=== PATIENT | male | born 1960 | race Caucasian/White ===

== ENCOUNTER 2018-12-23 23:00 | Inpatient (IN) | payer OTHER ==
[~2018-12-23] VITALS: Ht 175.3 cm; Wt 81.6 kg
[2018-12-23 23:01] VITALS: BP 102/64
--- NOTE | 2018-12-23 23:05 | NUR ---
TO LOBBY A/W BED, AMBULATORY
--- NOTE | 2018-12-23 23:28 | NUR ---
PT TAKEN TO BED 4
--- NOTE | 2018-12-23 23:50 | NUR ---
PT C/O RECTAL BLEEDING AND HEMMORHOIDS WORSENING OVER 1 WEEK, DIZZINESS AND PALLOR. STATES HE'S FILLING TOILET WITH BRIGHT BED BLOOD. DENIES PAIN, SOB, SOB. NO OTHER COMPLAINTS. PLACED ON FULL MONITOR, BED IN LOW POSITION/LOCKED, NO REQUESTS AT THIS TIME.
--- NOTE | 2018-12-23 23:54 | NUR ---
RAD AT BEDSIDE
[2018-12-24] MEDS ORDERED: NACL 0.9% 1,000 ML IV ONE (00:10)
[2018-12-24 00:53] LABS: APPEARANCE,URINE CLEAR (CLEAR); BILIRUBIN,URINE NEGATIVE (NEGATIVE); BLOOD, URINE NEGATIVE (NEGATIVE); COLOR,URINE YELLOW (YELLOW); LEUKOCYTE ESTERASE ,URINE NEGATIVE (NEGATIVE); NITRITE, URINE NEGATIVE (NEGATIVE); PH,URINE 6.5 (5.0-9.0); UGLUCOSE NEGATIVE (NEGATIVE)
[2018-12-24 00:57] LABS: CARBON DIOXIDE 26.2 mmol/L (21-32); CREATININE 1.1 mg/dL (0.7-1.3); POTASSIUM 4.2 mmol/L (3.5-5.1)
[2018-12-24 00:59] LABS: BARBITURATE, URINE NEG. ng/ml (NEG <=200); BENZODIAZEPINE, URINE NEG. ng/mL (NEG <=200); CANNABINOID, URINE NEG. ng/mL (NEG <=50); COCAINE, URINE NEG. ng/mL (NEG <=300); OPIATE, URINE NEG. ng/mL (NEG <=2000); PHENCYCLIDINE SCREEN,URINE NEG. ng/mL (NEG <=25)
[2018-12-24 00:59] LABS: BASOPHILS % (AUTO) 0.3 % (0.0-2.0); EOSINOPHILS # (AUTO) 0.3 K/uL (0-0.4); EOSINOPHILS % (AUTO) 4.3 % (0.0-4.0); HEMATOCRIT 22.3 % (36-52); LYMPHOCYTES # (AUTO) 2.3 K/uL (2.0-11.5); LYMPHOCYTES % (AUTO) 32.3 % (20.5-51.1); MEAN CORPUSCULAR HEMOGLOBIN 28 pg (27-31); MEAN CORPUSCULAR HGB CONC 33 g/dL (33-37); MEAN CORPUSCULAR VOLUME 83.9 fL (80-94); MONOCYTES # (AUTO) 0.8 K/uL (0.8-1.0); MONOCYTES % (AUTO) 10.8 % (1.7-9.3); NEUTROPHILS # (AUTO) 3.7 K/uL (1.8-7.7); NEUTROPHILS % (AUTO) 52.3 % (42.2-75.2); PLATELET COUNT (AUTO) 344 K/uL (140-450); RED BLOOD CELL COUNT(AUTO) 2.66 MIL/uL (4.20-6.10); RED CELL DISTRIBUTION WIDTH 15.9 % (11.6-13.7); WHITE BLOOD COUNT (AUTO) 7.1 K/uL (4.8-10.8)
[2018-12-24 01:03] LABS: ALBUMIN 3.3 g/dL (3.4-5.0); TOTAL BILIRUBIN 0.3 mg/dL (0.0-1.0)
[2018-12-24 01:05] LABS: HEMOGLOBIN 7.4 g/dL (12.0-18.0)
--- NOTE | 2018-12-24 01:15 | NUR ---
Pt awake in bed. VSS at this time. Snack provided for pt. Bedrails x1 up. HOB elevated for comfort. Will continue to monitor.
[2018-12-24 01:34] LABS: PROTHROMBIN TIME 10.7 secs (10.8-13.4)
[2018-12-24] MEDS ORDERED: ACETAMINOPHEN 325 MG TAB PO PRN (01:40)
[2018-12-24] MEDS ORDERED: POTASSIUM CHLORIDE 40 MEQ, LIDOCAINE 1% 25 MG in NACL 0.9% 250 ML IV PRN (01:40)
[2018-12-24] MEDS ORDERED: guaiFENesin DM 200/20 MG-10 ML 10 ML UDC PO PRN (01:40)
[2018-12-24] MEDS ORDERED: POTASSIUM CHLORIDE 10 MEQ TABER PO PRN (01:40)
[2018-12-24] MEDS ORDERED: ONDANSETRON 4 MG/2 ML VIAL IVP PRN (01:40)
[2018-12-24] MEDS ORDERED: MAGNESIUM OXIDE 400 MG TAB PO PRN (01:40)
[2018-12-24] MEDS ORDERED: diphenhydrAMINE 50 MG/ML VIAL IVP PRN (01:40)
[2018-12-24] MEDS ORDERED: ALBUTEROL 0.083% 2.5 MG/3 ML NEBU INH PRN (01:40)
[2018-12-24] MEDS ORDERED: MAG SULF 2000 MG/WATER PREMIX 50 ML IV PRN (01:40)
[2018-12-24] MEDS ORDERED: DOCUSATE SODIUM 250 MG GELCAP PO PRN (01:40)
[2018-12-24] MEDS ORDERED: ZOLPIDEM 5 MG TAB PO PRN (01:40)
[2018-12-24] MEDS ORDERED: ASPI-1718 PO (02:52)
[2018-12-24] MEDS ORDERED: CARV25TA PO (03:12)
[2018-12-24] MEDS ORDERED: LIP80 PO (03:12)
[2018-12-24] MEDS ORDERED: AMLO10TA PO (03:12)
[2018-12-24] MEDS ORDERED: RANO1000 PO (03:12)
[2018-12-24] MEDS ORDERED: ACET-5636 PO (03:12)
[2018-12-24] MEDS ORDERED: GABA100C PO (03:12)
[2018-12-24] MEDS ORDERED: CYCL10TA33 PO (03:12)
--- NOTE | 2018-12-24 03:20 | NUR ---
Patient will be admitted to care of Dr. Dowell. Admited to [facility]. Will go to room 120A Belongings list completed. VSS at time of transport. Report given to VAHID Harrell. Transfer of care at this time.
--- NOTE | 2018-12-24 03:30 | NUR ---
ADMITTED THIS 58 YEAR OLD MALE FORM ER PER SHALINI WITH CC OF DIZZINESS AND BLOODY STOOL, AMBULATED TO BED USING CANE, ASSESSMENT DONE, VITAL SIGNS STABLE, COMPLAINING OF LOWER BACK PAIN DUE TO HX OF SEVERE LUMBAR STENOSIS, WILL MEDICATE PRN, ORIENTED TO ROOM AND CALL LIGHT, SAFETY MEASURES IN PLACE, CALL LIGHT WITHIN REACH.
[2018-12-24] MEDS ORDERED: LOSARTAN (03:48)
--- NOTE | 2018-12-24 03:50 | NUR ---
PT AMBULATED TO BR, BM WITH BLOODY STOOL NOTED, HX OF HEMORRHOIDS, TO RECEIVE 2 UNIT PRBC TODAY ORDERED, CONSENT SIGNED, MONITORED CLOSELY
[2018-12-24] MEDS ORDERED: [UNRECOGNIZED DRUG - OTHER] PO (03:54)
[2018-12-24 04:00] VITALS: BP 133/77
--- NOTE | 2018-12-24 04:25 | NUR ---
1ST UNIT PRBC STARTED, MONITORED FOR ANY REACTION, VITAL SIGNS PER PROTOCOL, ALL NEEDS ATTENDED.
[2018-12-24] MEDS: HYDROcodone/APAP 5/325 MG 1 TAB TAB PO PRN ×3 (05:07→23:08)
--- NOTE | 2018-12-24 05:55 | NUR ---
PT SLEEPING, EASILY AROUSABLE, VERBALIZED PAIN RELIEF, 1ST UNIT PRBC INFUSING WELL, NO SIGNS OF REACTION NOTED SO FAR, CONTINUE TO MONITOR CLOSELY.
--- NOTE | 2018-12-24 07:09 | NUR ---
RECEIVED PT AWAKE, NO DISTRESS NOTED, REPORT GIVEN TO VAHID MAYNARD FOR CONTINUITY OF CARE.
--- NOTE | 2018-12-24 07:10 | NUR ---
RECEIVED BEDSIDE REPORT FROM VAHID ALEJO. PT STABLE, AWAKE, ALERT AND ORIENTED X4. NO SIGNS OF DISTRESS NOTED. DENIES PAIN OR SOB. NO REDNESS, SWELLING, OR INFLAMMATION NOTED ON IV SITE. BLOOD TRANSFUSION RUNNING. BED IN LOWEST POSITION, BED ALARM ON. CALL MACHADO WITHIN REACH. SAFETY MEASURES IN PLACE. PLAN OF CARE REVIEWED.
[2018-12-24] MEDS ORDERED: ALUMINUM HYD/MAG/SIMETHICONE 30 ML UDC PO PRN (07:40)
[2018-12-24] MEDS ORDERED: CYCLOBENZAPRINE 10 MG TAB PO PRN (07:40)
[2018-12-24 08:00] VITALS: BP 105/63
--- NOTE | 2018-12-24 08:28 | NUR ---
PATIENT HAS BEEN SCREENED AND CATEGORIZED MODERATE NUTRITION RISK. PATIENT WILL BE SEEN WITHIN 3-5 DAYS OF ADMISSION. 12/26/18[address]
--- NOTE | 2018-12-24 09:30 | NUR ---
ICE PACK PROVIDED TO PT FOR BACK PAIN. PT TOLERATED WELL.
[2018-12-24 10:16] LABS: BASOPHILS % (AUTO) 0.5 % (0.0-2.0); EOSINOPHILS # (AUTO) 0.3 K/uL (0-0.4); EOSINOPHILS % (AUTO) 5.2 % (0.0-4.0); HEMATOCRIT 24.2 % (36-52); HEMOGLOBIN 7.9 g/dL (12.0-18.0); LYMPHOCYTES % (AUTO) 35.1 % (20.5-51.1); MEAN CORPUSCULAR HEMOGLOBIN 28 pg (27-31); MEAN CORPUSCULAR HGB CONC 33 g/dL (33-37); MEAN CORPUSCULAR VOLUME 85.9 fL (80-94); MONOCYTES # (AUTO) 0.8 K/uL (0.8-1.0); NEUTROPHILS # (AUTO) 2.5 K/uL (1.8-7.7); NEUTROPHILS % (AUTO) 45.2 % (42.2-75.2); PLATELET COUNT (AUTO) 282 K/uL (140-450); RED BLOOD CELL COUNT(AUTO) 2.82 MIL/uL (4.20-6.10); RED CELL DISTRIBUTION WIDTH 16.1 % (11.6-13.7); WHITE BLOOD COUNT (AUTO) 5.6 K/uL (4.8-10.8)
--- NOTE | 2018-12-24 11:09 | NUR ---
CALLED OFFICE OF DR DAVIS [phone] SPOKE TO SUNIL, MADE A FOLLOW-UP APPOINTMENT ON 01/02/19 @ 1145 AM, [id number] [place], [phone]. I MADE COPY OF APPOINTMENT SCHEDULE AND GIVEN IT TO PATIENT. PRIMARY NURSE ALEYDA GARZA NOTIFIED.
--- NOTE | 2018-12-24 11:10 | NUR ---
SPOKE WITH SKETCH ARTIST ALEYDA CABRERA REGARDING PT'S PLAN OF CARE.
--- NOTE | 2018-12-24 11:20 | NUR ---
BLOOD TRANSFUSION STARTED, VERIFIED WITH VAHID HARLEY. PT TOLERATED WELL. VITAL SIGNS TAKEN, PT STABLE. WILL CONTINUE TO MONITOR.
--- NOTE | 2018-12-24 11:35 | NUR ---
VITAL SIGNS TAKEN, PT STABLE. NO BLOOD TRANSFUSION REACTION NOTED FROM PT. PT DENIES ITCHINESS, CHEST PAIN, DIZZINESS, OR N/V. WILL CONTINUE TO MONITOR.
--- NOTE | 2018-12-24 11:45 | NUR ---
ADMINISTERED PRN NORCO AND FLEXERIL FOR 5/10 BACK PAIN AND MAALOX FOR UPSET STOMACH. PT TOLERATED WELL. NO OTHER NEEDS AT THIS TIME.
[2018-12-24 12:00] VITALS: BP 117/73
--- NOTE | 2018-12-24 12:04 | NUR ---
DR CALI AT THE BEDSIDE, RECEIVED VERBAL ORDER FROM DR CALI FOR CLEAR LIQUID DIET.
[2018-12-24] MEDS ORDERED: NON-FORMULARY ITEM (Oxycodone HCl/Acetaminophen (Percocet 10-325 mg Tablet) 1 TAB) PO SCH (13:00)
--- NOTE | 2018-12-24 13:13 | NUR ---
PAGED DR ARRIAZA.
--- NOTE | 2018-12-24 13:18 | NUR ---
SPOKE WITH DR ARRIAZA, RECEIVED TELEPHONE ORDER FOR GI CONSULT - DR. LEMUS.
--- NOTE | 2018-12-24 14:15 | NUR ---
PT STABLE, SLEEPING, BUT EASILY AROUSABLE. NO OTHER NEEDS AT THIS TIME
--- NOTE | 2018-12-24 15:05 | NUR ---
BLOOD TRANSFUSION DONE, NO REACTION NOTED. VITAL SIGNS TAKEN, PT STABLE. NO OTHER NEEDS AT THIS TIME.
[2018-12-24 16:00] VITALS: BP 132/80
[2018-12-24] MEDS ORDERED: oxyCODONE/APAP 5/325 MG 1 TAB TAB PO SCH (17:00)
[2018-12-24] MEDS: oxyCODONE/APAP 5/325 MG 1 TAB TAB PO SCH (17:35)
--- NOTE | 2018-12-24 17:41 | NUR ---
ADMINISTERED SCHEDULED MEDICATIONS, PT TOLERATED WELL. NO OTHER NEEDS AT THIS TIME.
--- NOTE | 2018-12-24 19:05 | NUR ---
ENDORSED PT TO RN HERMELINDA FOR CONTINUITY OF CARE. PT STABLE.
[2018-12-24] MEDS ORDERED: BOWEL EVACUANT DRINK 4,000 ML PDS PO SCH (19:15)
[2018-12-24] MEDS ORDERED: SENNA 8.6 MG TAB PO SCH (19:15)
--- NOTE | 2018-12-24 19:35 | NUR ---
RECEIVED BEDSIDE REPORT FROM DAY SHIFT NURSE. PATIENT AWAKE, ALERT, AND COOPERATIVE. RESPIRATION EVEN UNLABORED ON ROOM AIR. NO DISTRESS NOTED. SKIN IS WARM AND DRY. IV PATENT AND INTACT. PATIENT AMBULATES WITH ASSISTIVE DEVICE. PLAN OF CARE REVIEWED AND DISCUSSED. ALL SAFETY MEASURES IN PLACE. BED IN LOW POSITION. CALL LIGHT WITHIN REACH AND VERBALIZE ITS USE. WILL CONTINUE TO MONITOR.
[2018-12-24 20:00] VITALS: BP 124/90
[2018-12-24] MEDS: CARVEDILOL 12.5 MG TAB PO SCH (20:53)
[2018-12-24] MEDS: GABAPENTIN 100 MG CAP PO SCH (20:53)
--- NOTE | 2018-12-24 21:00 | NUR ---
ALL SCHEDULED MEDS WERE GIVEN PER ORDER. NO ASE NOTED. WILL CONTINUE TO MONITOR.
--- NOTE | 2018-12-24 22:00 | NUR ---
PATIENT HAD 2 EPISODE OF BOWEL MOVEMENT. INSTRUCT PATIENT TO CONTINUALLY KEEP DRINKING GOLYTELY PER ORDER. WILL CONTINUE TO MONITOR
[2018-12-24] MEDS ORDERED: MAGNESIUM CITRATE 300 ML BTL PO SCH (23:00)
--- NOTE | 2018-12-24 23:00 | NUR ---
PATIENT COMPLAINED OF LOWER BACK PAIN 04/05. PRN PAIN MED ADMINISTERED PER ORDER. WILL CONTINUE TO MONITOR
[2018-12-25] VITALS: BP 157/90
--- NOTE | 2018-12-25 | NUR ---
VITALS WERE TAKEN. PATIENT CONDITION STABLE. NO DISTRESS NOTED WILL CONTINUE TO MONITOR
--- NOTE | 2018-12-25 02:00 | NUR ---
CHECKED PATIENT. PATIENT SLEEPING RESPIRATION EVEN UNLABORED ON ROOM AIR. NO DISTRESS NOTED. WILL CONTINUE TO MONITOR.
[2018-12-25 04:00] VITALS: BP 116/76
--- NOTE | 2018-12-25 04:00 | NUR ---
VITALS WERE TAKEN. PATIENT CONDITION STABLE. PATIENT COMPLAINED OF BACK PAIN 8/. PRN PAIN MED ADMINISTERED PER ORDER. WILL CONTINUE TO MONITOR
[2018-12-25] MEDS: HYDROcodone/APAP 5/325 MG 1 TAB TAB PO PRN (04:06)
[2018-12-25 06:33] LABS: BASOPHILS % (AUTO) 0.3 % (0.0-2.0); EOSINOPHILS # (AUTO) 0.3 K/uL (0-0.4); EOSINOPHILS % (AUTO) 4.3 % (0.0-4.0); HEMATOCRIT 25.3 % (36-52); HEMOGLOBIN 8.5 g/dL (12.0-18.0); LYMPHOCYTES # (AUTO) 1.7 K/uL (2.0-11.5); LYMPHOCYTES % (AUTO) 24.7 % (20.5-51.1); MEAN CORPUSCULAR HEMOGLOBIN 28 pg (27-31); MEAN CORPUSCULAR HGB CONC 33 g/dL (33-37); MEAN CORPUSCULAR VOLUME 82.5 fL (80-94); MONOCYTES # (AUTO) 0.8 K/uL (0.8-1.0); MONOCYTES % (AUTO) 11.5 % (1.7-9.3); NEUTROPHILS % (AUTO) 59.2 % (42.2-75.2); PLATELET COUNT (AUTO) 311 K/uL (140-450); RED BLOOD CELL COUNT(AUTO) 3.07 MIL/uL (4.20-6.10); WHITE BLOOD COUNT (AUTO) 6.7 K/uL (4.8-10.8)
[2018-12-25 06:45] LABS: ANION GAP 10.4 (8-16); CARBON DIOXIDE 26.5 mmol/L (21-32); CREATININE 0.8 mg/dL (0.7-1.3); POTASSIUM 3.9 mmol/L (3.5-5.1)
--- NOTE | 2018-12-25 07:18 | NUR ---
ENDORSED PATIENT TO DAY SHIFT NURSE. PATIENT CONDITION STABLE.
--- NOTE | 2018-12-25 07:24 | NUR ---
RECEIVED BEDSIDE REPORT FROM EXPANDED FUNCTION DENTAL ASSISTANT NURSE. PATIENT AWAKE, ALERT, AND COOPERATIVE. RESPIRATIONS EVEN AND UNLABORED ON ROOM AIR. NO DISTRESS NOTED. SKIN IS WARM AND DRY. IV PATENT AND INTACT. PATIENT AMBULATES WITH ASSISTIVE DEVICE. PLAN OF CARE REVIEWED AND DISCUSSED. ALL SAFETY MEASURES IN PLACE. BED IN LOW POSITION. CALL LIGHT WITHIN REACH AND VERBALIZED UNDERSTANDING OF ITS USE. WILL CONTINUE TO MONITOR.
[2018-12-25 08:00] VITALS: BP 154/92
[2018-12-25] MEDS: GABAPENTIN 100 MG CAP PO SCH ×2 (09:00→09:32)
[2018-12-25] MEDS: ATORVASTATIN 80 MG TAB PO SCH ×2 (09:00→09:32)
[2018-12-25] MEDS ORDERED: amLODIPine 5 MG TAB PO SCH (09:00)
[2018-12-25] MEDS: oxyCODONE/APAP 5/325 MG 1 TAB TAB PO SCH ×4 (09:00→17:00)
[2018-12-25] MEDS ORDERED: ASPIRIN 81 MG TAB.CHEW PO SCH (09:00)
[2018-12-25] MEDS: CARVEDILOL 12.5 MG TAB PO SCH (09:33)
--- NOTE | 2018-12-25 09:35 | NUR ---
ADMINISTERED MORNING BP MEDS TO PT. ALL OTHER MEDS WERE HELD PER MD ORDERS DUE TO PT GOING IN FOR EGD AND COLONOSCOPY PROCEDURE. ALL OTHER NEEDS CURRENTLY MET. PT BP WAS ELEVATED AT 154/92. OR AWARE OF OCCURRENCE. AWAITING OR NURSE TO OPERATING THEATRE TECHNICIAN PT FOR PROCEDURE.
[2018-12-25] MEDS ORDERED: fentaNYL 0.05 MG/ML VIAL ONE (09:46)
[2018-12-25] MEDS ORDERED: MIDAZOLAM 2 MG/2 ML VIAL ONE (09:46)
[2018-12-25] MEDS ORDERED: diphenhydrAMINE 50 MG/ML VIAL ONE (09:47)
--- NOTE | 2018-12-25 09:52 | NUR ---
PT GOING TO OR FOR EGD AND COLONOSCOPY PROCEDURE. PT LEFT UNIT IN STABLE CONDITION.
--- NOTE | 2018-12-25 10:45 | NUR ---
PT RETURNED FROM OR. VITAL SIGNS STABLE AT:TEMP-98.1, HR-69, BP-105/62, RR-16, O2 SAT:92%. NO ACTIVE BLEEDING REPORTED FROM PROCEDURE. 'S PROGRESS NOTES IN CHART. PT IN STABLE CONDITION AT THIS TIME AND SLEEPING. WILL CONTINUE TO ROUND FREQUENTLY ON PT.
[2018-12-25] MEDS ORDERED: MIDAZOLAM 2 MG/2 ML VIAL IVP ONE (11:05)
[2018-12-25] MEDS ORDERED: fentaNYL 0.05 MG/ML VIAL IVP ONE (11:05)
[2018-12-25] MEDS ORDERED: diphenhydrAMINE 50 MG/ML VIAL IVP ONE (11:05)
[2018-12-25 12:00] VITALS: BP 138/87
[2018-12-25] MEDS ORDERED: SODIUM FERRIC GLUCONATE 125 MG in NACL 0.9% 100 ML IV SCH (12:00)
--- NOTE | 2018-12-25 12:47 | NUR ---
PT RESTING IN BED WITH FAMILY AT BEDSIDE. ALL PT NEEDS CURRENTLY MET AT THIS TIME. WILL CONTINUE TO ROUND FREQUENTLY ON PT.
--- NOTE | 2018-12-25 12:50 | NUR ---
PT HAD BOWEL MOVEMENT AND IS STILL REPORTING BLOOD IN THE STOOL. MD AWARE AND AWAITING PLAN OR CARE FOR PT.
[2018-12-25] MEDS: FERROUS SULFATE 325 MG TABEC PO SCH ×2 (12:59→17:53)
--- NOTE | 2018-12-25 14:56 | NUR ---
PT SITTING UP IN BED WITH FAMILY AT BEDSIDE. PT EATING OSEAS IN THE BOX/ PT EDUCATED ON IMPORTANCE OF EATING HEALTHY ASSIGNED CARDIAC DIET. PT VERBALIZED UNDERSTANDING BUT CONTINUES TO EAT UNHEALTHY SNACKS.
[2018-12-25 16:00] VITALS: BP 135/85
--- NOTE | 2018-12-25 17:21 | NUR ---
PT SITTING ON EDGE OF BED WITH FAMILY AT BEDSIDE. PT AWAITING MEAL TRAY AND WILL GIVE SCHEDULED MEDS. PT IN STABLE CONDITION AT THIS TIME. BED IN LOW POSITION, CALL LIGHT WITHIN REACH. PT WALKER AT BEDSIDE AT ARMS REACH OF HIM.
--- NOTE | 2018-12-25 18:50 | NUR ---
PT DISCHARGED HOME FOR SELF CARE. PT DISCHARGE TEACHING DONE ON NECESSITY TO FOLLOW-UP WITH . ALSO PT MED RECONCILIATION WAS EXPLAINED. PT VERBALIZED UNDERSTANDING OF DISCHARGE TEACHING. PT SIGNED ALL DISCHARGE PAPERWORK. IV'S REMOVED WITH TIPS INTACT. WRIST BANDS REMOVED AND PLACED IN SHRED BIN. ALL PERSONAL BELONGINGS TAKEN WITH PT. PT TAKEN HOME IN STABLE CONDITION BY SISTER.
[2018-12-25] MEDS ORDERED: HYDROCORTISONE SUPPOSITORY 25 MG SUPP RC SCH (21:00)
[2018-12-26] MEDS ORDERED: LACTULOSE 20 GM/30 ML UDC PO SCH (09:00)
[2018-12-26] MEDS ORDERED: PANTOPRAZOLE 40 MG TABEC PO SCH (09:00)
== END 2018-12-25 18:50 | disposition home or self-care (01) | DRG 254 ==
LOC: MED 23:00 → MTU 12-24 02:33
PROVIDERS: ADMIT Internal Medicine Pulmonary Disease; ATTEND Internal Medicine Pulmonary Disease
PROC: 30233N1 Transfusion of Nonautologous Red Blood Cells into Peripheral Vein, Percutaneous Approach (ICD-10-PCS; principal; 2018-12-24)
PROC: 0DJD8ZZ Inspection of Lower Intestinal Tract, Via Natural or Artificial Opening Endoscopic (ICD-10-PCS; 2018-12-25)
PROC: 0DB68ZX Excision of Stomach, Via Natural or Artificial Opening Endoscopic, Diagnostic (ICD-10-PCS; 2018-12-25 10:00)
DX: K64.8 Other hemorrhoids (principal); E83.51 Hypocalcemia; E87.1 Hypo-osmolality and hyponatremia; D50.9 Iron deficiency anemia, unspecified; F15.10 Other stimulant abuse, uncomplicated; E78.00 Pure hypercholesterolemia, unspecified; K57.90 Diverticulosis of intestine, part unspecified, without perforation or abscess without bleeding; E78.5 Hyperlipidemia, unspecified; I10 Essential (primary) hypertension; I25.10 Atherosclerotic heart disease of native coronary artery without angina pectoris; G89.29 Other chronic pain; I25.2 Old myocardial infarction; K64.4 Residual hemorrhoidal skin tags; Z79.82 Long term (current) use of aspirin; Z95.1 Presence of aortocoronary bypass graft; Z95.5 Presence of coronary angioplasty implant and graft; Z88.2 Allergy status to sulfonamides; Z88.8 Allergy status to other drugs, medicaments and biological substances
CPT/HCPCS: 36415; 71045; 80048; 80053; 80305; 81003; 82272; 82728; 83540; 84484; 85025; 85610; 85730; 86677; 86886; 86900; 86901; 86920; 87081; 93005; 96360; 99285; J1200; J2250; J2916; J3010; J7030; P9016; Q0092

== ENCOUNTER 2019-06-10 01:04 | Emergency (ER) | payer OTHER ==
[~2019-06-10] VITALS: Ht 175.3 cm; Wt 78.5 kg
[~2019-06-10 01:04] MED LIST: ACET-5636 PO; AMLO10TA PO; ASPI-1718 PO; CARV25TA PO; CYCL10TA33 PO; GABA100C PO; LIP80 PO; LOSA50TA57 PO; TICA90TA PO
[2019-06-10 01:07] VITALS: BP 127/76
--- NOTE | 2019-06-10 01:07 | NUR ---
PATIENT TAKEN TO BED 8.
--- NOTE | 2019-06-10 01:07 | NUR ---
53 Y/O MALE C/O CHEST PAIN X10 MINS. PAIN RADIATES TO LT JAW AND NECK. 324MG AND 0.4NITRO GIVEN BY EMS X5 MINS FLEET MANAGER/DISPATCH. PATIENT IS A/O X3 AND FOLLOWS COMMANDS. BREATHING IS UNLABORED AND SYMMETRICAL. PATIENT STATES HE HAS NAUSEA. PAIN IS A 10/10 STERNAL PAIN THAT RADIATES TO THE LEFT JAW AND LEFT NECK. ERMD MADE AWARE OF STATUS. SIDE RAILS X1 AND PLACED ON MONITOR. WILL CONTINUE TO MONITOR. HX- GA, CABG, HTN, CAD ALLERGIES- SULFA, ALLANTOIN, SHELLFISH
[2019-06-10] MEDS ORDERED: MORPHINE SULFATE 4 MG/ML SYR IVP ONE ×2 (01:15→03:45)
[2019-06-10] MEDS ORDERED: ONDANSETRON 4 MG/2 ML VIAL IVP ONE (01:15)
[2019-06-10 01:27] LABS: BASOPHILS % (AUTO) 0.4 % (0.0-2.0); EOSINOPHILS # (AUTO) 0.1 K/uL (0-0.4); EOSINOPHILS % (AUTO) 1.9 % (0.0-4.0); HEMATOCRIT 37.6 % (36-52); HEMOGLOBIN 12.2 g/dL (12.0-18.0); LYMPHOCYTES # (AUTO) 1.6 K/uL (2.0-11.5); LYMPHOCYTES % (AUTO) 21.9 % (20.5-51.1); MEAN CORPUSCULAR HEMOGLOBIN 28 pg (27-31); MEAN CORPUSCULAR HGB CONC 32 g/dL (33-37); MEAN CORPUSCULAR VOLUME 86.3 fL (80-94); MONOCYTES # (AUTO) 0.8 K/uL (0.8-1.0); MONOCYTES % (AUTO) 10.9 % (1.7-9.3); NEUTROPHILS # (AUTO) 4.6 K/uL (1.8-7.7); NEUTROPHILS % (AUTO) 64.9 % (42.2-75.2); PLATELET COUNT (AUTO) 333 K/uL (140-450); RED BLOOD CELL COUNT(AUTO) 4.36 MIL/uL (4.20-6.10); RED CELL DISTRIBUTION WIDTH 16.5 % (11.6-13.7); WHITE BLOOD COUNT (AUTO) 7.1 K/uL (4.8-10.8)
[2019-06-10 01:45] LABS: ALBUMIN 4.2 g/dL (3.4-5.0); ANION GAP 15.9 (8-16); CARBON DIOXIDE 23.9 mmol/L (21-32); POTASSIUM 3.8 mmol/L (3.5-5.1); TOTAL BILIRUBIN 0.6 mg/dL (0.0-1.0)
--- NOTE | 2019-06-10 02:15 | NUR ---
PATIENT REFUSED TO GIVE A URINE SAMPLE AT THIS TIME. NOTIFIED
--- NOTE | 2019-06-10 02:36 | NUR ---
PATIENT IS IN NO DISTRESS AND IS SLEEPING AT THIS TIME. WILL CONTINUE TO MONITOR.
--- NOTE | 2019-06-10 03:17 | NUR ---
PATIENT IS SLEEPING AT THIS TIME. WILL CONTINUE TO MONITOR.
--- NOTE | 2019-06-10 03:48 | NUR ---
PATIENT STATES HE HAS BACK PAIN OF 03/05. NOTIFIED.
--- NOTE | 2019-06-10 04:11 | NUR ---
LAB AT BEDSIDE.
--- NOTE | 2019-06-10 04:46 | NUR ---
PATIENT IS IN NO DISTRESS AT THIS TIME. WILL CONTINUE TO MONITOR.
--- NOTE | 2019-06-10 05:32 | NUR ---
PATIENT IS SLEEPING AT THIS TIME. WILL CONTINUE TO MONITOR.
[2019-06-10 07:26] VITALS: BP 133/74
--- NOTE | 2019-06-10 07:26 | NUR ---
Patient discharged with v/s stable. Written and verbal after care instructions given and explained. Patient verbalized understanding. Wheel Chair Assisted with to home. All questions addressed prior to discharge. Advised to follow up with PMD. PATIENT IN LOBBY. GAVE HOMELESS PACKET. WAITING FOR OIM CONSULTANT.
--- NOTE | 2019-06-10 11:30 | NUR ---
Patient requested to speak to SW. [facility] and is having difficulty finding a place to go because he does not have a phone. SW discussed patient's options and patient stated that he needs to orange picker his bicycle and phone from his ex-girlfriend's house. Patient stated that his phone was at his ex-girlfriend's house, and that his bicycle is at [employer]. SW consulted with housekeeping department worker Bibiana. A taxi voucher was given to patient in order to orange picker his phone and bicycle. Patient verbalized appreciation. Patient stated that he will coordinate his living arrangements once his phone is in his possession and is able to bike to a family member's house. MCKENNA/MATHEUS will follow up as needed.
== END 2019-06-10 07:26 | disposition home or self-care (01) ==
LOC: MED 01:04
DX: R07.89 Other chest pain (principal); Z76.0 Encounter for issue of repeat prescription; I25.10 Atherosclerotic heart disease of native coronary artery without angina pectoris; I10 Essential (primary) hypertension; Z95.1 Presence of aortocoronary bypass graft; Z79.899 Other long term (current) drug therapy; Z79.891 Long term (current) use of opiate analgesic; Z79.82 Long term (current) use of aspirin; Z88.2 Allergy status to sulfonamides; Z88.8 Allergy status to other drugs, medicaments and biological substances; Z91.013 Allergy to seafood
CPT/HCPCS: 36415; 71045; 80053; 82550; 82553; 83690; 84484; 85025; 93005; 96374; 96375; 96376; 99284; J2270; J2405; Q0092

== ENCOUNTER 2019-12-13 11:57 | Emergency (ER) | payer SELFPAY ==
[~2019-12-13] VITALS: Ht 175.3 cm; Wt 78.0 kg
[~2019-12-13 11:57] MED LIST changes: -ASPI-1718 PO; +ASPI-1822 PO
[2019-12-13 12:04] VITALS: BP 199/122
--- NOTE | 2019-12-13 12:20 | NUR ---
PT EVAL IN TENT, VSS.
--- NOTE | 2019-12-13 12:25 | NUR ---
c/o generalized rash throughout body x10 days. pt states he has had scabies 2-3 years ago and this feels the same. denies recent body to body contact with anyone new. Pt also requesting refil for all medications listed below, but does not know the dosages. hx: htn, cad, chronic back pain rx: norvasc, atenolol, carvedilol, baby aspirin, norco, flexeril & lipitor
--- NOTE | 2019-12-13 13:00 | NUR ---
Patient discharged with v/s stable. Written and verbal after care instructions given and explained. Patient alert, oriented and verbalized understanding of instructions. Ambulatory with steady gait. All questions addressed prior to discharge. ID band removed. Patient advised to follow up with PMD. Rx of PREMETHRIN given. Patient educated on indication of medication including possible reaction and side effects. Opportunity to ask questions provided and answered.
[2019-12-13 13:11] VITALS: BP 188/109
== END 2019-12-13 13:00 | disposition home or self-care (01) ==
LOC: MED 11:57
DX: B86 Scabies (principal); I10 Essential (primary) hypertension; Z95.1 Presence of aortocoronary bypass graft; Z79.899 Other long term (current) drug therapy; Z79.82 Long term (current) use of aspirin; Z88.2 Allergy status to sulfonamides; Z91.013 Allergy to seafood
CPT/HCPCS: 99282

== ENCOUNTER 2019-12-29 16:26 | Emergency (ER) | payer SELFPAY ==
[~2019-12-29] VITALS: Ht 175.3 cm; Wt 79.4 kg
[2019-12-29 16:44] VITALS: BP 202/124
--- NOTE | 2019-12-29 16:51 | NUR ---
59 Y/O MALE FROM HOME C/O SCABIES TO GENERALIZED BODY. PT STATES HE HAD 1ST TREATMENT BUT RAN OUT OF MEDS FOR SECOND TREATMENT. STATES 2/10 BURNING PAIN, BUT IS ITCHY. WAS SEEN LAST WEEK FOR SAME ISSUE. RR EVEN AND UNLABORED. INCREASED BLOOD PRESSURE, ERMD MADE AWARE.
[2019-12-29] MEDS ORDERED: cloNIDine 0.1 MG TAB PO ONE (17:10)
--- NOTE | 2019-12-29 17:16 | NUR ---
DR FERNÁNDEZ EXAMINING PT
[2019-12-29 17:54] VITALS: BP 191/88
--- NOTE | 2019-12-29 17:54 | NUR ---
Patient discharged with v/s stable. Written and verbal after care instructions given and explained. Patient alert, oriented and verbalized understanding of instructions. Ambulatory with steady gait. All questions addressed prior to discharge. ID band removed. Patient advised to follow up with PMD. Rx of PERMETHRIN CREAM, LOSARTAN 50MG, CIREG 25MG, AMLODIPINE 5MG given. Patient educated on indication of medication including possible reaction and side effects. Opportunity to ask questions provided and answered.
== END 2019-12-29 17:54 | disposition home or self-care (01) ==
LOC: MED 16:26
DX: B86 Scabies (principal); I11.0 Hypertensive heart disease with heart failure; Z79.899 Other long term (current) drug therapy; Z88.2 Allergy status to sulfonamides; Z91.013 Allergy to seafood
CPT/HCPCS: 99283

== ENCOUNTER 2019-12-31 17:58 | Emergency (ER) | payer SELFPAY ==
[~2019-12-31] VITALS: Ht 175.3 cm; Wt 79.4 kg
[2019-12-31 18:14] VITALS: BP 175/125
[2019-12-31 20:53] VITALS: BP 189/98
== END 2019-12-31 20:53 | disposition home or self-care (01) ==
LOC: MED 17:58
DX: B89 Unspecified parasitic disease (principal); R05 Cough; I11.0 Hypertensive heart disease with heart failure; Z79.899 Other long term (current) drug therapy; Z88.2 Allergy status to sulfonamides; Z91.013 Allergy to seafood; Z79.82 Long term (current) use of aspirin; Z95.1 Presence of aortocoronary bypass graft
CPT/HCPCS: 71045; 99283; Q0092

== ENCOUNTER 2020-01-03 21:49 | Emergency (ER) | payer SELFPAY ==
[~2020-01-03] VITALS: Ht 175.3 cm; Wt 79.4 kg
--- NOTE | 2020-01-03 22:00 | NUR ---
PT AMBULATED TO BED 7 WITH STEADY GAIT. NEGATIVE COVID SCREEN.
[2020-01-03 22:07] VITALS: BP 159/94
[2020-01-03 22:15] VITALS: BP 159/94
--- NOTE | 2020-01-03 22:15 | NUR ---
PT LAYING SUPINE ON BED. SAFETY MEASURES IN PLACE. WILL CONTINUE TO MONITOR.
--- NOTE | 2020-01-03 22:45 | NUR ---
DR. ADAIR AT BEDSIDE TO EVALUATE PT.
--- NOTE | 2020-01-03 23:07 | NUR ---
RAD AT BEDSIDE FOR CHEST XR
--- NOTE | 2020-01-04 00:01 | NUR ---
Patient discharged with v/s stable. Written and verbal after care instructions given and explained. Patient alert, oriented and verbalized understanding of instructions. Ambulatory with steady gait. All questions addressed prior to discharge. ID band removed. Patient advised to follow up with PMD. Rx of CLINDAMYCIN AND PROMETHEZINE given. Patient educated on indication of medication including possible reaction and side effects. Opportunity to ask questions provided and answered.
== END 2020-01-04 00:01 | disposition home or self-care (01) ==
LOC: MED 21:49
DX: L03.90 Cellulitis, unspecified (principal); F06.2 Psychotic disorder with delusions due to known physiological condition; I11.0 Hypertensive heart disease with heart failure; R05 Cough; Z79.899 Other long term (current) drug therapy; Z88.2 Allergy status to sulfonamides; Z88.0 Allergy status to penicillin
CPT/HCPCS: 71045; 99283; Q0092

== ENCOUNTER 2020-01-05 16:01 | Emergency (ER) | payer SELFPAY ==
[~2020-01-05] VITALS: Ht 175.3 cm; Wt 79.4 kg
[2020-01-05 16:22] VITALS: BP 134/98
--- NOTE | 2020-01-05 16:30 | NUR ---
WAIT AT TENT.
--- NOTE | 2020-01-05 16:46 | NUR ---
C/O SCABIES CAMES ALL OVER HIS BODY. SEEN HERE SEVERAL TIMES FOR SCABIES. 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 PATIENT STATED THE MEDS ARE VERY EXPENSIVE AND HE DOES NOT HAVE MONEY. PATIENT STATES BACK PAIN OF 03/05 AT THIS TIME.
--- NOTE | 2020-01-05 17:00 | NUR ---
Patient discharged with v/s stable. Written and verbal after care instructions given and explained. Patient alert, oriented and verbalized understanding of instructions. Ambulatory with steady gait. All questions addressed prior to discharge. ID band removed. Patient advised to follow up with PMD. Rx of PERMETHRIN CREAM given. Patient educated on indication of medication including possible reaction and side effects. Opportunity to ask questions provided and answered.
[2020-01-05 17:01] VITALS: BP 134/98
== END 2020-01-05 17:00 | disposition home or self-care (01) ==
LOC: MED 16:01
DX: B86 Scabies (principal); I11.0 Hypertensive heart disease with heart failure; Z88.2 Allergy status to sulfonamides; Z91.013 Allergy to seafood; Z79.899 Other long term (current) drug therapy
CPT/HCPCS: 99282

== ENCOUNTER 2020-01-19 00:47 | Emergency (ER) | payer MEDICAID ==
[~2020-01-19] VITALS: Ht 175.3 cm; Wt 77.1 kg
[2020-01-19 00:55] VITALS: BP 179/108
[2020-01-19 02:33] VITALS: BP 179/108
== END 2020-01-19 02:32 | disposition home or self-care (01) ==
LOC: MED 00:47
DX: R21 Rash and other nonspecific skin eruption (principal); R05 Cough; I10 Essential (primary) hypertension; I51.89 Other ill-defined heart diseases; Z79.899 Other long term (current) drug therapy; Z91.013 Allergy to seafood; Z88.2 Allergy status to sulfonamides; Z79.84 Long term (current) use of oral hypoglycemic drugs
CPT/HCPCS: 99281; 99283

== ENCOUNTER 2020-04-04 15:08 | Emergency (ER) | payer MEDICAID, OTHER ==
[~2020-04-04] VITALS: Ht 175.3 cm; Wt 77.1 kg
[2020-04-04 15:30] VITALS: BP 161/122
[2020-04-04] MEDS ORDERED: KETOROLAC 60 MG/2 ML VIAL IM ONE (16:05)
--- NOTE | 2020-04-04 16:07 | NUR ---
59/M C/O RIGHT PELVIC PAIN POSTERIORLY S/P FALL X 2.5-3 WEEKS AGO. RADIATION OF PAIN TO RIGHT HIP WITH AMBULATION. PT HAS BEEN USING A STICK CANE FOR AMBULATION. WAS W/C FROM TRIAGE TO BED 05. NO OBVIOUS DEFORMITY. MOVES ALL EXTREMITIES. DENIES NUMBNESS/TINGLING, LOSS OF BOWEL/BLADDER CONTROL. STATES 10/10 DEEP, SHARP PAIN AT THIS TIME. HX-CAD
--- NOTE | 2020-04-04 16:21 | NUR ---
TO XRAY VIA W/C WITH FOLDER TIER
--- NOTE | 2020-04-04 16:42 | NUR ---
BACK TO BED 05 VIA W/C
--- NOTE | 2020-04-04 17:31 | NUR ---
GIACOMO STEWART SPEAKING TO PATIENT AT BEDSIDE
--- NOTE | 2020-04-04 17:40 | NUR ---
Patient discharged with v/s stable. Written and verbal after care instructions given and explained. Patient alert, oriented and verbalized understanding of instructions. Wheel Chair Assisted with to car. All questions addressed prior to discharge. ID band removed. Patient advised to follow up with PMD. Rx of IBUPROFEN given. XRAY REPORTS PRINTED OUT AND GIVEN TO PATIENT-- REQUESTED BY GIACOMO STEWART. Patient educated on indication of medication including possible reaction and side effects. Opportunity to ask questions provided and answered.
[2020-04-04 17:41] VITALS: BP 161/106
== END 2020-04-04 17:40 | disposition home or self-care (01) ==
LOC: MED 15:08
DX: M54.5 Low back pain (principal); M43.16 Spondylolisthesis, lumbar region; M16.0 Bilateral primary osteoarthritis of hip; I11.0 Hypertensive heart disease with heart failure; Z88.2 Allergy status to sulfonamides; Z91.013 Allergy to seafood; Z79.899 Other long term (current) drug therapy; Z79.82 Long term (current) use of aspirin
CPT/HCPCS: 72100; 72220; 96372; 99284; J1885

== ENCOUNTER 2020-04-05 17:04 | Emergency (ER) | payer OTHER ==
--- NOTE | 2020-04-05 17:26 | NUR ---
PT CALLED FROM WAITING ROOM, NO RESPONSE.
--- NOTE | 2020-04-05 17:54 | NUR ---
PT LEFT WITHOUT BEING SCENE.
== END 2020-04-05 17:26 | disposition left against medical advice (07) ==
LOC: MED 17:04
DX: R52 Pain, unspecified (principal); Z53.21 Procedure and treatment not carried out due to patient leaving prior to being seen by health care provider

== ENCOUNTER 2020-09-17 16:38 | Emergency (ER) | payer MEDICAID, SELFPAY ==
[~2020-09-17] VITALS: Ht 175.3 cm; Wt 79.4 kg
[2020-09-17 16:53] VITALS: BP 116/70
--- NOTE | 2020-09-17 17:00 | NUR ---
triaged and in tent.
--- NOTE | 2020-09-17 17:01 | NUR ---
PCR collected and sent to lab.
--- NOTE | 2020-09-17 18:00 | NUR ---
Patient discharged with v/s stable. Written and verbal after care instructions given and explained. Patient alert, oriented and verbalized understanding of instructions. Ambulatory with walker. All questions addressed prior to discharge. ID band removed. Patient advised to follow up with PMD. Rx of PROMETHAZINE given. Patient educated on indication of medication including possible reaction and side effects. Opportunity to ask questions provided and answered.
[2020-09-17 18:28] VITALS: BP 116/70
--- NOTE | 2020-09-19 13:41 | NUR ---
Covid results received from lab. Results = Positive. Hard copy requested from lab and placed in infection controls mailbox.
== END 2020-09-17 17:01 | disposition home or self-care (01) ==
LOC: MED 16:38
DX: U07.1 COVID-19 (principal); I11.9 Hypertensive heart disease without heart failure; Z88.2 Allergy status to sulfonamides; Z91.013 Allergy to seafood; Z79.899 Other long term (current) drug therapy
CPT/HCPCS: 71045; 99284; U0003

== ENCOUNTER 2024-05-16 13:54 | Emergency (ER) | payer MEDICAID, OTHER ==
[~2024-05-16] VITALS: Ht 167.6 cm; Wt 73.9 kg
[~2024-05-16 13:54] MED LIST changes: -CYCL10TA33 PO; +FURO-570 PO; -GABA100C PO; +SPIR50TA PO
[2024-05-16 14:16] VITALS: PULSE 88; RESP 18; TEMP 97.7; O2SAT 100
[2024-05-16] MEDS ORDERED: CIPR7.5D2 OT (14:51)
== END 2024-05-16 15:21 | disposition home or self-care (01) ==
LOC: MED 13:54
DX: H60.502 Unspecified acute noninfective otitis externa, left ear (principal); I11.0 Hypertensive heart disease with heart failure; I50.9 Heart failure, unspecified; I25.2 Old myocardial infarction; Z79.899 Other long term (current) drug therapy; Z88.2 Allergy status to sulfonamides; Z91.013 Allergy to seafood
CPT/HCPCS: 99283